=== PATIENT | male | born 1980 | race Caucasian/White ===

== ENCOUNTER 2019-06-04 20:42 | Observation (INO) ==
[2019-06-04] MEDS ORDERED: 0.9 % Sodium Chloride 1,000 ML IVC ONE ×2 (21:00→22:47)
[2019-06-04] MEDS ORDERED: Pantoprazole 40 MG VIAL IVP ONE (21:00)
[2019-06-04] MEDS ORDERED: Morphine Sulfate 2 MG/ML SYRINGE IVP ONE (21:00)
[2019-06-04] MEDS ORDERED: diazePAM 10 MG/2 ML SYRINGE IVP STA (21:30)
[2019-06-04 21:34] LABS: Basophils # 0.1 K/mcL (0.0-0.2); Basophils % 0.8 %; Eosinophils % 0.1 %; Hemoglobin 14.9 g/dL (12.9-16.9); Immature Granulocytes % 0.1 % (0-4); Lymphocytes # 1.6 K/mcL (0.6-4.6); Lymphocytes % 20.2 %; Mean Corpuscular HGB Conc 35.5 g/dL (31.6-35.5); Mean Corpuscular Hemoglobin 32.3 pg (28.0-33.3); Mean Corpuscular Volume 91.1 fL (83.0-100.0); Mean Platelet Volume 10.8 fL (9.4-12.4); Monocytes # 0.6 K/mcL (0.0-1.3); Monocytes % 7.3 %; Neutrophils # 5.5 K/mcL (1.6-8.9); Platelet Count 131 K/mcL (140-400); Red Blood Count 4.61 M/mcL (4.19-5.50); Red Cell Distribution Width 12.1 % (11.5-14.5); Segmented Neutrophils % 71.5 %; White Blood Count 7.7 K/mcL (4.3-11.1)
[2019-06-04 21:45] LABS: INR 0.8; Prothrombin Time 9.4 Seconds (9.4-12.1)
[2019-06-04 21:47] LABS: Activated Partial Thrombo Time 30.1 Seconds (26.0-36.0)
[2019-06-04 21:50] LABS: Alanine Aminotransferase 28 Units/L (7-52); Albumin 4.4 g/dL (3.5-5.7); Albumin/Globulin Ratio 1.5 (1.1-2.2); Alkaline Phosphatase 97 Units/L (34-104); Aspartate Amino Transferase 50 Units/L (13-39); BUN/Creatinine Ratio 22 (6-26); Bilirubin,Direct 0.4 mg/dL (0.0-0.2); Bilirubin,Indirect 0.7 mg/dL (0.0-1.2); Bilirubin,Total 1.1 mg/dL (0.3-1.0); Blood Urea Nitrogen 11 mg/dL (6-20); Calcium 9.8 mg/dL (8.6-10.3); Carbon Dioxide 29 mEq/L (23-29); Chloride 87 mEq/L (98-107); Globulin 2.9 g/dL (2.4-3.5); Glucose 77 mg/dL (70-105); Lipase 62 Units/L (11-82); Osmolality,Calculated 270 (280-300); Potassium 3.9 mEq/L (3.5-5.1); Sodium 131 mEq/L (136-145); Total Protein 7.3 g/dL (6.4-8.9); eGFR For African Americans > 60 (> 60); eGFR For Non-African Americans > 60 (> 60)
[2019-06-04] MEDS ORDERED: Isovue-370 500 ML BOTTLE IVP ONE (22:04)
[2019-06-04] MEDS ORDERED: Ondansetron 4 MG/2 ML VIAL IVP ONE (22:47)
[2019-06-04] MEDS ORDERED: Nicotine 21 MG PATCH.TD24 TD STA (22:47)
[2019-06-04] MEDS ORDERED: Lidocaine Viscous Oral Soln 15 ML SOLUTION MM STA (22:47)
[2019-06-04 23:01] LABS: Bilirubin,Urine Negative (Negative); Blood,Urine Negative (Negative); Clarity,Urine Clear (Clear); Color,Urine Yellow (Yellow); Glucose,Urine (UA) Normal (Normal); Ketones,Urine 40 mg/dL (Negative); Leukocyte Esterase,Urine Negative (Negative); Nitrite,Urine Negative (Negative); PH,Urine 6.5 pH Units (5.0-8.0); Protein,Urine 30 mg/dL (Neg-Trace); Urobilinogen,Urine Normal (Normal)
[2019-06-04 23:19] LABS: Amphetamine Screen,Urine Negative ng/mL (Cutoff=1000); Barbiturate Screen,Urine Negative ng/mL (Cutoff=200); Benzodiazepines Screen,Urine Negative ng/mL (Cutoff=200); Cannabinoid Screen,Urine Negative ng/mL (Cutoff = 50); Cocaine Screen,Urine Negative ng/mL (Cutoff= 300); Opiate Screen,Urine Negative ng/mL (Cutoff=300); Phencyclidine Screen,Urine Negative ng/mL (Cutoff=25)
[2019-06-05] MEDS ORDERED: Naloxone 0.4 MG/ML INJ IVP PRN (05:49)
[2019-06-05] MEDS ORDERED: Ketorolac 30 MG/ML VIAL IVP PRN (05:56)
[2019-06-05] MEDS ORDERED: *HR* LORazepam 2 MG/ML VIAL IVP PRN ×3 (05:57)
[2019-06-05] MEDS ORDERED: Ondansetron 4 MG/2 ML VIAL IVP PRN (05:58)
[2019-06-05] MEDS ORDERED: 0.9 % Sodium Chloride 1,000 ML IVC SCH (06:00)
[2019-06-05 06:17] LABS: Hematocrit 39.9 % (37.5-50.1); Hemoglobin 13.6 g/dL (12.9-16.9); Mean Corpuscular HGB Conc 34.1 g/dL (31.6-35.5); Mean Corpuscular Hemoglobin 32.2 pg (28.0-33.3); Mean Corpuscular Volume 94.3 fL (83.0-100.0); Mean Platelet Volume 11.9 fL (9.4-12.4); Platelet Count 121 K/mcL (140-400); Red Blood Count 4.23 M/mcL (4.19-5.50); Red Cell Distribution Width 12.3 % (11.5-14.5); White Blood Count 6.7 K/mcL (4.3-11.1)
[2019-06-05] MEDS ORDERED: Pantoprazole 40 MG VIAL IVP SCH ×2 (06:30→21:00)
[2019-06-05 06:36] LABS: Alanine Aminotransferase 24 Units/L (7-52); Albumin 3.7 g/dL (3.5-5.7); Albumin/Globulin Ratio 1.5 (1.1-2.2); Alkaline Phosphatase 82 Units/L (34-104); Aspartate Amino Transferase 50 Units/L (13-39); BUN/Creatinine Ratio 18 (6-26); Bilirubin,Total 1.1 mg/dL (0.3-1.0); Blood Urea Nitrogen 10 mg/dL (6-20); Calcium 8.7 mg/dL (8.6-10.3); Carbon Dioxide 27 mEq/L (23-29); Chloride 96 mEq/L (98-107); Globulin 2.4 g/dL (2.4-3.5); Glucose 70 mg/dL (70-105); Magnesium 1.5 mg/dL (1.6-2.6); Osmolality,Calculated 279 (280-300); Phosphorous 3.5 mg/dL (2.7-4.5); Potassium 4.1 mEq/L (3.5-5.1); Sodium 136 mEq/L (136-145); Total Protein 6.1 g/dL (6.4-8.9); eGFR For African Americans > 60 (> 60); eGFR For Non-African Americans > 60 (> 60)
[2019-06-05] MEDS ORDERED: Dextrose Gel 15 GM/37.5 ML TUBE PO PRN ×2 (07:50)
[2019-06-05] MEDS ORDERED: D5% in Water 1,000 ML IVC PRN (07:50)
[2019-06-05] MEDS ORDERED: *HR* Dextrose 50 % in Water (Syg) 50 ML SYRINGE IVP PRN (07:50)
[2019-06-05] MEDS ORDERED: D5% in Lactated Ringers 1,000 ML IVC SCH (08:00)
[2019-06-05] MEDS ORDERED: *HR* Propofol 200 MG/20 ML VIAL IVP ONE (08:25)
[2019-06-05] MEDS ORDERED: Propofol 500 MG/50 ML INFUS..BTL ONE (08:38)
[2019-06-05] MEDS ORDERED: 0.9 % Sodium Chloride 500 ML IVC SCH (09:00)
[2019-06-05] MEDS ORDERED: Insulin LISPRO 300 UNITS/3 ML VIAL SQ SCH (12:00)
[2019-06-05 13:57] VITALS: BP 165/92
[2019-06-05] MEDS ORDERED: Thiamine (B-1) 100 MG, Folic Acid 1 MG, MVI, adult with vitamin K 10 ML in 0.9 % Sodi... IVPB SCH (18:00)
== END 2019-06-05 14:47 | disposition left against medical advice (07) ==
LOC: 3ANU 20:42 → EMEROOARM 20:42 → SUATTDRO 23:33 → 3ANU 06-05 00:03
PROVIDERS: ADMIT Family Medicine; ATTEND Internal Medicine
PROC: ENDOEBX (2019-06-05 09:00)

== ENCOUNTER 2019-06-09 19:03 | Observation (INO) ==
--- NOTE | 2019-06-09 21:19 | Emergency Department Note ---
Disposition Clinical Impression: Alcoholism Pancreatitis Qualifiers: Chronicity: acute Pancreatitis type: alcohol induced Acute pancreatitis complication: unspecified Qualified Code(s): K85.20 - Alcohol induced acute p ancreatitis without necrosis or infection Disposition: Admitted As Inpatient Condition: Good Referrals: NONE,PCP [Primary Care Provider] - Forms: ED Satisfaction Letter, Work/School Release Time of Disposition: 00:20 General Adult HPI - General Chief complaint: ED General Medical Stated complaint: General Time Seen by Provider: 06/09/19 21:18 Source: patient Limitations: no limitations Nursing Notes Reviewed: Yes Vital Signs Reviewed: Yes - History of Present Illness HPI Narrative: 39-year-old male presents to the emergency department with concern that he is not eating. Patient has chronic history of alcoholism where he states that he drinks approximately 2 pints of liquor per day as well as 6 pack of 12 ounce beers. Patient reports that he recently left the hospital AGAINST MEDICAL ADVICE as he was admitted for bleeding ulcers. Patient states that he has not been vomiting up blood or last few days, but his been eating anything and states that he feels dehydrated. Patient denying any chest pain, abdominal pain, nausea, vomiting. Pain Scale: 7 - Related Data Home Medications Medication Instructions Recorded Confirmed Buprenorphine HCl/Naloxone HCl 1 each SL BID 06/04/19 06/04/19 [Suboxone 8 mg-2 mg Sl Film] Previous Rx's Medication Instructions Recorded Lisinopril [Zestril] 20 mg PO DAILY #5 tablet 05/06/19 Omeprazole [PriLOSEC] 20 mg PO BID 30 Days #60 capsule. 06/05/19 Sucralfate [Carafate] 1 gm PO QIDAC 30 Days #120 tablet 06/05/19 Allergies Allergy/AdvReac Type Severity Reaction Status Date / Time No Known Allergies Allergy Verified 01/01/18 06:52 All systems ED: reviewed and negative except as stated. Review of Systems: As Per HPI Constitutional: Denies: fever Cardiovascular: Denies: chest pain Gastrointestinal: Denies: abdominal pain, nausea, vomiting, melena, hematochezia Genitourinary: Denies: dysuria Musculoskeletal: Denies: back pain Past Medical History - Past Medical History Attestation: Yes The following information was validated with the patient. Medical history: Reports: hypertension, other Psychiatric history: Reports: anxiety - Social History Smoking Status: Current every day smoker Smokeless Tobacco Status: No Alcohol use: Reports: heavy, recent Drug use: Reports: none Physical Exam - General Limitations: no limitations General appearance: appears intoxicated - Head Head exam: normocephalic - Eye Eye exam: Present: EOMI. Absent: scleral icterus - ENT ENT exam: mucous membranes dry - Neck Neck exam: Present: full ROM - Chest Chest inspection: Present: symmetric chest wall rise - Respiratory Respiratory exam: Present: normal lung sounds bilaterally. Absent: respiratory distress, accessory muscle use - Cardiovascular Cardiovascular exam: Present: regular rate, normal rhythm, normal heart sounds - Abdominal Exam Abdominal exam: Present: soft, Non-Tender. Absent: distention, guarding, rebou nd, rigidity - Extremities Exam Extremities exam: Present: normal capillary refill - Back Exam Back exam: Present: full ROM - Neurological Exam Neurological exam: Present: alert, CN II-XII intact - Psychiatric Psychiatric exam: Present: normal affect, normal mood - Skin Skin exam: Present: warm, dry, intact, normal color. Absent: rash Course Vital Signs Temperature 97.7 F 06/09/19 19:42 Pulse Rate 95 06/09/19 19:42 Respiratory Rate 16 06/09/19 19:42 Blood Pressure 152/99 06/09/19 19:42 O2 Sat by Pulse Oximetry 96 06/09/19 19:42 Temperature 97.7 F 06/09/19 19:42 Pulse Rate 90 06/09/19 22:37 Respiratory Rate 16 06/09/19 22:37 Blood Pressure 120/98 06/09/19 22:37 O2 Sat by Pulse Oximetry 96 06/09/19 22:37 Oxygen Delivery Oxygen Delivery Room Air Medical Decision Making - [facility] Narrative Medical decision making narrative: 39-year-old male presents to the emergency department with concern for decreased appetite and dehydration with known alcoholism. We are providing fluids and thiamine. We will also give protonix 80 mg. Patient elevated lipase. Ethanol was also elevated. I spoke with the hospitalist, Dr. Alarcon who requested a CT scan of the abdomen and pelvis with IV contrast and stated that he would follow-up on the radiology report. He also requested that we administer 250 mils per hour of lactated Ringer's and initiate CIWA protocol. Patient received 2 mg of Ativan in the emergency department. Patient hemodynamically stable at time of admission. - Lab Data Result diagrams: 06/09/19 21:30 06/09/19 21:30 Lab Results 06/09/19 06/09/19 06/09/19 Range/Units 21:30 21:30 21:30 WBC 6.3 (4.3-11.1) K/mcL RBC 4.74 (4.19-5.50) M/mcL Hgb 15.4 D (12.9-16.9) g/dL Hct 44.2 (37.5-50.1) % MCV 93.2 (83.0-100.0) fL MCH 32.5 (28.0-33.3) pg MCHC 34.8 (31.6-35.5) g/dL RDW 12.1 (11.5-14.5) % Plt Count 144 (140-400) K/mcL MPV 10.7 (9.4-12.4) fL Immature Gran % 0.2 (0-4) % Seg Neutrophils % 50.8 % Lymphocytes % 39.7 % Monocytes % 7.5 % Eosinophils % 0.8 % Basophils % 1.0 % Neutrophils # 3.2 (1.6-8.9) K/mcL Lymphocytes # 2.5 (0.6-4.6) K/mcL Monocytes # 0.5 (0.0-1.3) K/mcL Eosinophils # 0.1 (0.0-0.6) K/mcL Basophils # 0.1 (0.0-0.2) K/mcL Sodium 143 (136-145) mEq/L Potassium 3.2 L (3.5-5.1) mEq/L Chloride 105 (98-107) mEq/L Carbon Dioxide 29 (23-29) mEq/L BUN 4 L (6-20) mg/dL Creatinine 0.64 L (0.70-1.30) mg/dL Est GFR ( Amer) > 60 (> 60) Est GFR (Non-Af Amer) > 60 (> 60) BUN/Creatinine Ratio 6 (6-26) Glucose 84 (70-105) mg/dL Calculated Osmolality 292 (280-300) Calcium 9.2 (8.6-10.3) mg/dL Magnesium 2.0 (1.6-2.6) mg/dL Total Bilirubin 0.4 (0.3-1.0) mg/dL AST 35 (13-39) Units/L ALT 24 (7-52) Units/L Alkaline Phosphatase 95 (34-104) Units/L Serum Total Protein 7.5 (6.4-8.9) g/dL Albumin 4.3 (3.5-5.7) g/dL Globulin 3.2 (2.4-3.5) g/dL Albumin/Globulin Ratio 1.3 (1.1-2.2) Lipase 921 H (11-82) Units/L Urine Color (Yellow) Urine Clarity (Clear) Urine pH (5.0-8.0) pH Units Ur Specific [place] (1.010-1.025) Urine Protein (Neg-Trace) mg/dL Urine Glucose (UA) (Normal) mg/dL Urine Ketones (Negative) mg/dL Urine Blood (Negative) Urine Nitrite (Negative) Urine Bilirubin (Negative) Urine Urobilinogen (Normal) mg/dL Ur Leukocyte Esterase (Negative) Urine Microscopic RBC (0-3) per hpf Urine Microscopic WBC (0-3) per hpf Ur Squamous Epith Cells (None-Few) per lpf Urine Bacteria (None-Few) per hpf Hyaline Casts (None-Few) per lpf Ur Culture Indicated? (NO) Salicylates < 2.5 L (15.0-30.0) mg/dL Urine Opiates Screen Negative (Qxuwbl=047) ng/mL Ur Buprenorphine Scrn Positive H (Cutoff=5) ng/mL Acetaminophen < 10 L (10-20) mcg/mL Ur Barbiturates Screen Negative (Jpdblu=357) ng/mL Ur Phencyclidine Scrn Negative (Cutoff=25) ng/mL Ur Amphetamines Screen Negative (Uxcboq=2998) ng/mL U Benzodiazepines Scrn Negative (Cbzzoh=766) ng/mL Urine Cocaine Screen Negative (Cutoff= 300) ng/mL U Marijuana (THC) Screen Negative (Cutoff = 50) ng/mL Ur Drug Screen Interp See Below Ethyl Alcohol 372 H (Less than 10) mg/dL 06/09/19 Range/Units 22:00 WBC (4.3-11.1) K/mcL RBC (4.19-5.50) M/mcL Hgb (12.9-16.9) g/dL Hct (37.5-50.1) % MCV (83.0-100.0) fL MCH (28.0-33.3) pg MCHC (31.6-35.5) g/dL RDW (11.5-14.5) % Plt Count (140-400) K/mcL MPV (9.4-12.4) fL Immature Gran % (0-4) % Seg Neutrophils % % Lymphocytes % % Monocytes % % Eosinophils % % Basophils % % Neutrophils # (1.6-8.9) K/mcL Lymphocytes # (0.6-4.6) K/mcL Monocytes # (0.0-1.3) K/mcL Eosinophils # (0.0-0.6) K/mcL Basophils # (0.0-0.2) K/mcL Sodium (136-145) mEq/L Potassium (3.5-5.1) mEq/L Chloride (98-107) mEq/L Carbon Dioxide (23-29) mEq/L BUN (6-20) mg/dL Creatinine (0.70-1.30) mg/dL Est GFR ( Amer) (> 60) Est GFR (Non-Af Amer) (> 60) BUN/Creatinine Ratio (6-26) Glucose (70-105) mg/dL Calculated Osmolality (280-300) Calcium (8.6-10.3) mg/dL Magnesium (1.6-2.6) mg/dL Total Bilirubin (0.3-1.0) mg/dL AST (13-39) Units/L ALT (7-52) Units/L Alkaline Phosphatase (34-104) Units/L Serum Total Protein (6.4-8.9) g/dL Albumin (3.5-5.7) g/dL Globulin (2.4-3.5) g/dL Albumin/Globulin Ratio (1.1-2.2) Lipase (11-82) Units/L Urine Color Yellow (Yellow) Urine Clarity Clear (Clear) Urine pH 7.0 (5.0-8.0) pH Units Ur Specific [place] 1.007 L (1.010-1.025) Urine Protein 30 H (Neg-Trace) mg/dL Urine Glucose (UA) Normal (Normal) mg/dL Urine Ketones Negative (Negative) mg/dL Urine Blood Negative (Negative) Urine Nitrite Negative (Negative) Urine Bilirubin Negative (Negative) Urine Urobilinogen Normal (Normal) mg/dL Ur Leukocyte Esterase Negative (Negative) Urine Microscopic RBC 0-3 (0-3) per hpf Urine Microscopic WBC 0-3 (0-3) per hpf Ur Squamous Epith Cells Few (None-Few) per lpf Urine Bacteria None Seen (None-Few) per hpf Hyaline Casts None Seen (None-Few) per lpf Ur Culture Indicated? NO (NO) Salicylates (15.0-30.0) mg/dL Urine Opiates Screen (Xxnier=573) ng/mL Ur Buprenorphine Scrn (Cutoff=5) ng/mL Acetaminophen (10-20) mcg/mL Ur Barbiturates Screen (Kvcarq=333) ng/mL Ur Phencyclidine Scrn (Cutoff=25) ng/mL Ur Amphetamines Screen (Ydprsa=0753) ng/mL U Benzodiazepines Scrn (Xopynw=639) ng/mL Urine Cocaine Screen (Cutoff= 300) ng/mL U Marijuana (THC) Screen (Cutoff = 50) ng/mL Ur Drug Screen Interp Ethyl Alcohol (Less than 10) mg/dL
[2019-06-09] MEDS ORDERED: 0.9 % Sodium Chloride 1,000 ML IVC ONE ×2 (21:34→23:23)
[2019-06-09] MEDS ORDERED: Thiamine (B-1) 100 MG in D5% in Water 50 ML IVPB ONE (21:34)
[2019-06-09] MEDS ORDERED: Pantoprazole 40 MG VIAL IVP ONE (21:34)
--- NOTE | 2019-06-09 21:54 | Emergency Department Note ---
Disposition Clinical Impression: Alcoholism Pancreatitis Qualifiers: Chronicity: acute Pancreatitis type: alcohol induced Acute pancreatitis complication: unspecified Qualified Code(s): K85.20 - Alcohol induced acute p ancreatitis without necrosis or infection Disposition: Admitted As Inpatient Condition: Good Time of Disposition: 00:20 General Adult HPI - General Chief complaint: ED General Medical Stated complaint: General Time Seen by Provider: 06/09/19 21:18 Source: patient Limitations: no limitations Nursing Notes Reviewed: Yes Vital Signs Reviewed: Yes - History of Present Illness Pain Scale: 7 - Related Data Home Medications Medication Instructions Recorded Confirmed Buprenorphine HCl/Naloxone HCl 1 each SL BID 06/04/19 06/10/19 [Suboxone 8 mg-2 mg Sl Film] Previous Rx's Medication Instructions Recorded Lisinopril [Zestril] 20 mg PO DAILY #5 tablet 05/06/19 Omeprazole [PriLOSEC] 20 mg PO BID 30 Days #60 capsule. 06/05/19 Sucralfate [Carafate] 1 gm PO QIDAC 30 Days #120 tablet 06/05/19 Allergies Allergy/AdvReac Type Severity Reaction Status Date / Time No Known Allergies Allergy Verified 01/01/18 06:52 Past Medical History - Past Medical History Medical history: Reports: hypertension, other Psychiatric history: Reports: anxiety - Social History Smoking Status: Current every day smoker Smokeless Tobacco Status: No Alcohol use: Reports: heavy, recent Drug use: Reports: none Physical Exam - General Limitations: no limitations General appearance: appears intoxicated Course Vital Signs Temperature 97.7 F 06/09/19 19:42 Pulse Rate 95 06/09/19 19:42 Respiratory Rate 16 06/09/19 19:42 Blood Pressure 152/99 06/09/19 19:42 O2 Sat by Pulse Oximetry 96 06/09/19 19:42 Temperature 97.7 F 06/09/19 19:42 Pulse Rate 90 06/09/19 22:37 Respiratory Rate 16 06/09/19 22:37 Blood Pressure 120/98 06/09/19 22:37 O2 Sat by Pulse Oximetry 96 06/09/19 22:37 Oxygen Delivery Oxygen Delivery Room Air Medical Decision Making - Medical Records Medical records reviewed: Yes I reviewed the patient's medical records. - Lab Data Lab results reviewed: Yes I reviewed the patient's lab results. Result diagrams: 06/09/19 21:30 06/09/19 21:30 Lab Results 06/09/19 06/09/19 06/09/19 Range/Units 21:30 21:30 21:30 WBC 6.3 (4.3-11.1) K/mcL RBC 4.74 (4.19-5.50) M/mcL Hgb 15.4 D (12.9-16.9) g/dL Hct 44.2 (37.5-50.1) % MCV 93.2 (83.0-100.0) fL MCH 32.5 (28.0-33.3) pg MCHC 34.8 (31.6-35.5) g/dL RDW 12.1 (11.5-14.5) % Plt Count 144 (140-400) K/mcL MPV 10.7 (9.4-12.4) fL Immature Gran % 0.2 (0-4) % Seg Neutrophils % 50.8 % Lymphocytes % 39.7 % Monocytes % 7.5 % Eosinophils % 0.8 % Basophils % 1.0 % Neutrophils # 3.2 (1.6-8.9) K/mcL Lymphocytes # 2.5 (0.6-4.6) K/mcL Monocytes # 0.5 (0.0-1.3) K/mcL Eosinophils # 0.1 (0.0-0.6) K/mcL Basophils # 0.1 (0.0-0.2) K/mcL Sodium 143 (136-145) mEq/L Potassium 3.2 L (3.5-5.1) mEq/L Chloride 105 (98-107) mEq/L Carbon Dioxide 29 (23-29) mEq/L BUN 4 L (6-20) mg/dL Creatinine 0.64 L (0.70-1.30) mg/dL Est GFR ( Amer) > 60 (> 60) Est GFR (Non-Af Amer) > 60 (> 60) BUN/Creatinine Ratio 6 (6-26) Glucose 84 (70-105) mg/dL Calculated Osmolality 292 (280-300) Calcium 9.2 (8.6-10.3) mg/dL Magnesium 2.0 (1.6-2.6) mg/dL Total Bilirubin 0.4 (0.3-1.0) mg/dL AST 35 (13-39) Units/L ALT 24 (7-52) Units/L Alkaline Phosphatase 95 (34-104) Units/L Serum Total Protein 7.5 (6.4-8.9) g/dL Albumin 4.3 (3.5-5.7) g/dL Globulin 3.2 (2.4-3.5) g/dL Albumin/Globulin Ratio 1.3 (1.1-2.2) Lipase 921 H (11-82) Units/L Urine Color (Yellow) Urine Clarity (Clear) Urine pH (5.0-8.0) pH Units Ur Specific [place] (1.010-1.025) Urine Protein (Neg-Trace) mg/dL Urine Glucose (UA) (Normal) mg/dL Urine Ketones (Negative) mg/dL Urine Blood (Negative) Urine Nitrite (Negative) Urine Bilirubin (Negative) Urine Urobilinogen (Normal) mg/dL Ur Leukocyte Esterase (Negative) Urine Microscopic RBC (0-3) per hpf Urine Microscopic WBC (0-3) per hpf Ur Squamous Epith Cells (None-Few) per lpf Urine Bacteria (None-Few) per hpf Hyaline Casts (None-Few) per lpf Ur Culture Indicated? (NO) Salicylates < 2.5 L (15.0-30.0) mg/dL Urine Opiates Screen Negative (Zqyafp=362) ng/mL Ur Buprenorphine Scrn Positive H (Cutoff=5) ng/mL Acetaminophen < 10 L (10-20) mcg/mL Ur Barbiturates Screen Negative (Kswyig=919) ng/mL Ur Phencyclidine Scrn Negative (Cutoff=25) ng/mL Ur Amphetamines Screen Negative (Akjaml=2964) ng/mL U Benzodiazepines Scrn Negative (Yhoolu=915) ng/mL Urine Cocaine Screen Negative (Cutoff= 300) ng/mL U Marijuana (THC) Screen Negative (Cutoff = 50) ng/mL Ur Drug Screen Interp See Below Ethyl Alcohol 372 H (Less than 10) mg/dL 06/09/19 Range/Units 22:00 WBC (4.3-11.1) K/mcL RBC (4.19-5.50) M/mcL Hgb (12.9-16.9) g/dL Hct (37.5-50.1) % MCV (83.0-100.0) fL MCH (28.0-33.3) pg MCHC (31.6-35.5) g/dL RDW (11.5-14.5) % Plt Count (140-400) K/mcL MPV (9.4-12.4) fL Immature Gran % (0-4) % Seg Neutrophils % % Lymphocytes % % Monocytes % % Eosinophils % % Basophils % % Neutrophils # (1.6-8.9) K/mcL Lymphocytes # (0.6-4.6) K/mcL Monocytes # (0.0-1.3) K/mcL Eosinophils # (0.0-0.6) K/mcL Basophils # (0.0-0.2) K/mcL Sodium (136-145) mEq/L Potassium (3.5-5.1) mEq/L Chloride (98-107) mEq/L Carbon Dioxide (23-29) mEq/L BUN (6-20) mg/dL Creatinine (0.70-1.30) mg/dL Est GFR ( Amer) (> 60) Est GFR (Non-Af Amer) (> 60) BUN/Creatinine Ratio (6-26) Glucose (70-105) mg/dL Calculated Osmolality (280-300) Calcium (8.6-10.3) mg/dL Magnesium (1.6-2.6) mg/dL Total Bilirubin (0.3-1.0) mg/dL AST (13-39) Units/L ALT (7-52) Units/L Alkaline Phosphatase (34-104) Units/L Serum Total Protein (6.4-8.9) g/dL Albumin (3.5-5.7) g/dL Globulin (2.4-3.5) g/dL Albumin/Globulin Ratio (1.1-2.2) Lipase (11-82) Units/L Urine Color Yellow (Yellow) Urine Clarity Clear (Clear) Urine pH 7.0 (5.0-8.0) pH Units Ur Specific [place] 1.007 L (1.010-1.025) Urine Protein 30 H (Neg-Trace) mg/dL Urine Glucose (UA) Normal (Normal) mg/dL Urine Ketones Negative (Negative) mg/dL Urine Blood Negative (Negative) Urine Nitrite Negative (Negative) Urine Bilirubin Negative (Negative) Urine Urobilinogen Normal (Normal) mg/dL Ur Leukocyte Esterase Negative (Negative) Urine Microscopic RBC 0-3 (0-3) per hpf Urine Microscopic WBC 0-3 (0-3) per hpf Ur Squamous Epith Cells Few (None-Few) per lpf Urine Bacteria None Seen (None-Few) per hpf Hyaline Casts None Seen (None-Few) per lpf Ur Culture Indicated? NO (NO) Salicylates (15.0-30.0) mg/dL Urine Opiates Screen (Kvcvfp=110) ng/mL Ur Buprenorphine Scrn (Cutoff=5) ng/mL Acetaminophen (10-20) mcg/mL Ur Barbiturates Screen (Goeusj=941) ng/mL Ur Phencyclidine Scrn (Cutoff=25) ng/mL Ur Amphetamines Screen (Wjvhmy=0793) ng/mL U Benzodiazepines Scrn (Wkdbub=649) ng/mL Urine Cocaine Screen (Cutoff= 300) ng/mL U Marijuana (THC) Screen (Cutoff = 50) ng/mL Ur Drug Screen Interp Ethyl Alcohol (Less than 10) mg/dL Attestation Statement - Attestation Attestation: I, Gigi Giraldo MD, personally evaluated this patient and discussed their management with the resident physician. I reviewed the resident's note and agree with the documented findings, medical decision making, and plan of care. 39-year-old male with history of alcoholism who admits to drinking one to 2 pints of whiskey daily and also about a sixpack of beer daily. He states he has had a sixpack of beer and a pint of whiskey today. He presents complaining of nausea and anorexia for the past several days. He has not been eating. No actual vomiting. Patient was just admitted to the hospital about 5 days ago because of some hematemesis. He was felt to have a bleeding ulcer and was started on some medication for this. He left the hospital AMA at that time. He states he has had no further vomiting or hematemesis since last and has continued to drink his usual amounts of alcohol. He does admit to some epigastric pain. No melena, hematemesis, or hematochezia. No fever. Patient states he is just here because his kids and girlfriend made him come in because they were concerned he is going to from his alcoholism. On examination patient is a well-developed thin male in no acute distress. He is alert and oriented 3. There is no cyanosis or diaphoresis. Breath sounds are clear and equal bilaterally. Heart regular rate and rhythm. Abdomen is so ft with present bowel sounds. There is mild mid epigastric tenderness. No guarding or rebound tenderness. No CVA tenderness. Labs reviewed. Lipase 900. Alcohol 372. The hospitalist, Dr. Alarcon, was consulted and accepted admission of the patient. He did request that we start its and obtain a CT of his abdomen and pelvis.
[2019-06-09 22:00] LABS: Basophils # 0.1 K/mcL (0.0-0.2); Eosinophils # 0.1 K/mcL (0.0-0.6); Eosinophils % 0.8 %; Hematocrit 44.2 % (37.5-50.1); Immature Granulocytes % 0.2 % (0-4); Lymphocytes # 2.5 K/mcL (0.6-4.6); Lymphocytes % 39.7 %; Mean Corpuscular HGB Conc 34.8 g/dL (31.6-35.5); Mean Corpuscular Hemoglobin 32.5 pg (28.0-33.3); Mean Corpuscular Volume 93.2 fL (83.0-100.0); Mean Platelet Volume 10.7 fL (9.4-12.4); Monocytes # 0.5 K/mcL (0.0-1.3); Monocytes % 7.5 %; Neutrophils # 3.2 K/mcL (1.6-8.9); Platelet Count 144 K/mcL (140-400); Red Blood Count 4.74 M/mcL (4.19-5.50); Red Cell Distribution Width 12.1 % (11.5-14.5); Segmented Neutrophils % 50.8 %; White Blood Count 6.3 K/mcL (4.3-11.1)
[2019-06-09 22:01] LABS: Hemoglobin 15.4 g/dL (12.9-16.9)
[2019-06-09] MEDS ORDERED: *HR* LORazepam 2 MG/ML VIAL IVP ONE (22:01)
[2019-06-09 22:26] LABS: Bilirubin,Urine Negative (Negative); Blood,Urine Negative (Negative); Clarity,Urine Clear (Clear); Color,Urine Yellow (Yellow); Glucose,Urine (UA) Normal (Normal); Ketones,Urine Negative (Negative); Leukocyte Esterase,Urine Negative (Negative); Nitrite,Urine Negative (Negative); Protein,Urine 30 mg/dL (Neg-Trace); Specific Gravity,Urine 1.007 (1.010-1.025); Urobilinogen,Urine Normal (Normal)
[2019-06-09 22:27] LABS: Acetaminophen < 10 mcg/mL (10-20); Alanine Aminotransferase 24 Units/L (7-52); Albumin 4.3 g/dL (3.5-5.7); Albumin/Globulin Ratio 1.3 (1.1-2.2); Alkaline Phosphatase 95 Units/L (34-104); Aspartate Amino Transferase 35 Units/L (13-39); BUN/Creatinine Ratio 6 (6-26); Bilirubin,Total 0.4 mg/dL (0.3-1.0); Blood Urea Nitrogen 4 mg/dL (6-20); Calcium 9.2 mg/dL (8.6-10.3); Carbon Dioxide 29 mEq/L (23-29); Chloride 105 mEq/L (98-107); Ethanol 372 mg/dL (Less than 10); Globulin 3.2 g/dL (2.4-3.5); Glucose 84 mg/dL (70-105); Osmolality,Calculated 292 (280-300); Potassium 3.2 mEq/L (3.5-5.1); Salicylate < 2.5 mg/dL (15.0-30.0); Sodium 143 mEq/L (136-145); Total Protein 7.5 g/dL (6.4-8.9); eGFR For African Americans > 60 (> 60); eGFR For Non-African Americans > 60 (> 60)
[2019-06-09 22:28] LABS: Bacteria,Urine None Seen per hpf (None-Few); Hyaline Casts,Urine None Seen per lpf (None-Few); RBC,Urine 0-3 per hpf (0-3); Squamous Epithelial Cell,Urine Few per lpf (None-Few); WBC,Urine 0-3 per hpf (0-3)
[2019-06-09 22:41] LABS: Amphetamine Screen,Urine Negative ng/mL (Cutoff=1000); Barbiturate Screen,Urine Negative ng/mL (Cutoff=200); Benzodiazepines Screen,Urine Negative ng/mL (Cutoff=200); Cannabinoid Screen,Urine Negative ng/mL (Cutoff = 50); Cocaine Screen,Urine Negative ng/mL (Cutoff= 300); Opiate Screen,Urine Negative ng/mL (Cutoff=300); Phencyclidine Screen,Urine Negative ng/mL (Cutoff=25)
[2019-06-09 22:47] LABS: Lipase 921 Units/L (11-82)
[2019-06-10] MEDS ORDERED: Isovue-370 500 ML BOTTLE IVP ONE (00:17)
[2019-06-10] MEDS ORDERED: Ringers Solution, Lactated 1,000 ML IVC ONE (00:18)
[2019-06-10] MEDS ORDERED: *HR* LORazepam 2 MG/ML VIAL IVP PRN ×2 (00:19)
[2019-06-10] MEDS ORDERED: Potassium Chloride 40 MEQ, Lidocaine 1% 2 ML in 0.9 % Sodium Chloride 500 ML IVPB ONE (01:00)
[2019-06-10] MEDS ORDERED: Naloxone 0.4 MG/ML INJ IVP PRN (01:52)
[2019-06-10] MEDS ORDERED: Ondansetron 4 MG/2 ML VIAL IVP PRN (01:52)
[2019-06-10 05:59] LABS: Red Cell Distribution Width 12.4 % (11.5-14.5)
[2019-06-10 06:00] LABS: Hematocrit 36.9 % (37.5-50.1); Hemoglobin 12.3 g/dL (12.9-16.9); Immature Platelets 6.6 % (1.1-6.1); Mean Corpuscular HGB Conc 33.3 g/dL (31.6-35.5); Mean Corpuscular Hemoglobin 31.9 pg (28.0-33.3); Mean Corpuscular Volume 95.8 fL (83.0-100.0); Mean Platelet Volume 10.4 fL (9.4-12.4); Red Blood Count 3.85 M/mcL (4.19-5.50); White Blood Count 4.8 K/mcL (4.3-11.1)
[2019-06-10] MEDS ORDERED: Pantoprazole 40 MG VIAL IVP SCH (06:00)
[2019-06-10 06:11] LABS: Prothrombin Time 10.9 Seconds (9.4-12.1)
[2019-06-10 06:14] LABS: Activated Partial Thrombo Time 30.6 Seconds (26.0-36.0)
[2019-06-10 06:29] LABS: Alanine Aminotransferase 22 Units/L (7-52); Albumin/Globulin Ratio 1.4 (1.1-2.2); Alkaline Phosphatase 78 Units/L (34-104); Aspartate Amino Transferase 45 Units/L (13-39); BUN/Creatinine Ratio 8 (6-26); Bilirubin,Total 0.3 mg/dL (0.3-1.0); Blood Urea Nitrogen 5 mg/dL (6-20); Calcium 7.7 mg/dL (8.6-10.3); Carbon Dioxide 23 mEq/L (23-29); Chloride 112 mEq/L (98-107); Globulin 2.1 g/dL (2.4-3.5); Glucose 90 mg/dL (70-105); Magnesium 1.3 mg/dL (1.6-2.6); Osmolality,Calculated 299 (280-300); Phosphorous 2.7 mg/dL (2.7-4.5); Potassium 4.2 mEq/L (3.5-5.1); Sodium 146 mEq/L (136-145); Total Protein 5.1 g/dL (6.4-8.9); eGFR For African Americans > 60 (> 60); eGFR For Non-African Americans > 60 (> 60)
[2019-06-10] MEDS: *HR* LORazepam 2 MG/ML VIAL IVP PRN ×3 (06:35→19:19)
--- NOTE | 2019-06-10 08:00 | Internal Med History&Physical ---
Date of Encounter: 06/10/19 Time of Encounter: 04:00 Internal Medicine - H&P: HPI Chief complaint: Decreased PO Intake/chronic alcohol use History of present illness: Mr. Cordoba is a 39 year old male with a past medical history of chronic alcohol use, history of opioid abuse currently on Suboxone who presented to the ED due to concern for decreased food intake. Patient states she has not had any significant food intake for the past several days because of his inability to stop drinking. Patient has chronic history of alcoholism where he states that he drinks approximately 2 pints of liquor per day as well as 6 - 12 pack of 12 ounce beers. Patient reports that he recently left the hospital AGAINST MEDICAL ADVICE as he was admitted for bleeding ulcers. Patient underwent endoscopy at the time which showed evidence of esophagitis. Patient states that he has not been vomiting up blood or last few days, but his been eating anything and states that he feels dehydrated. Patient denying any chest pain, abdominal pain, nausea, vomiting. On arrival patient mildly hypertensive. Laboratory workup relatively unremarkable aside from an elevated lipase of 923 and mild hypokalemia of 3.2. Urine toxicology positive for buprenorphine. Serum alcohol level 372. Patient given 2 L of fluid bolus in the ED and banana bag. Past Med Surg Social Fam HX - Past Medical History Medical history: hypertension, other Additional medical history: ulcer, alcoholism Psychiatric history: anxiety - Past Surgical History Additional surgical history: tubes in ears - Social History Smoking Status: Current every day smoker Packs per day: 2 ppd Smokeless Tobacco Status: No Alcohol use: heavy, recent Drug use: none - Family History Mother Living Status: Hx Family Cancer: Yes (Breast) Hx Family Genitourinary Disorders: Yes (kidney failure) Father Living Status: Still Living Internal Medicine - H&P: Meds Lisinopril [Zestril] 20 mg PO DAILY #5 tablet 05/06/19 [Rx] Buprenorphine HCl/Naloxone HCl [Suboxone 8 mg-2 mg Sl Film] 1 each SL BID 06/04/19 [History] Omeprazole [PriLOSEC] 20 mg PO BID 30 Days #60 capsule. 06/05/19 [Rx] Sucralfate [Carafate] 1 gm PO QIDAC 30 Days #120 tablet 06/05/19 [Rx] Allergy/AdvReac Type Severity Reaction Status Date / Time No Known Allergies Allergy Verified 01/01/18 06:52 All Systems PM: A 10-system review of systems was performed and is negative for pertinent findings except as documented above in the HPI. - Constitutional Constitutional: no chills, no fever(s), no night sweats - EENT Eyes: no change in vision, no discharge, no pain, no photophobia Ears: no ear discharge, no ear pain, no tinnitus Nose, mouth and throat: no dysphagia, no nasal discharge, no neck pain, no sore throat - Cardiovascular Cardiovascular ROS IM: no chest pain, no diaphoresis, no dyspnea, no lightheadedness, no palpitations, no syncope - Respiratory Respiratory: no cough, no dyspnea, no wheezing, no excessive phlegm production - Gastrointestinal Gastrointestinal: no abdominal pain, no diarrhea, no hematemesis, no hematochezia, no melena, no nausea, no vomiting - Musculoskeletal Musculoskeletal ROS IM: no numbness, no tingling - Integumentary Integumentary IM: no rash, no unusual bruising - Neurological Neurological ROS: no confusion, no convulsions, no focal weakness, no numbness, no tingling, no tremor(s) - Hematologic/Lymphatic Hematologic/Lymphatic: no easy bruising - Constitutional Vitals: Temp Pulse Resp BP Pulse Ox 98.4 F 61 14 135/83 93 06/10/19 06:39 06/10/19 06:39 06/10/19 06:39 06/10/19 06:39 06/10/19 06:39 Exam: General: Alert and oriented Skin:Normal color, no rash, no lesions. HEENT:EOM, pupils equal, round and reactive. Cardiovascular:Normal S1 & S2, no rubs, murmurs or gallops. No JVD. Pulse regular. Lungs:Normal breath sounds, no wheezes or crackles. Abdomen:Soft, non-tender, no rigidity. Extremities:No deformity, no edema or tenderness, no joint swelling or clubbing. Neurological:Normal cognition and motor skills. Pulses:Carotid and radial pulses normal +2. Rest of the physical exam is non contributory Internal Med - H&P Results - Labs CBC & Chem 7: 06/10/19 05:44 06/10/19 05:44 Labs: Short CBC 06/09/19 06/10/19 Range/Units 21:30 05:44 WBC 6.3 4.8 (4.3-11.1) K/mcL Hgb 15.4 D 12.3 L D (12.9-16.9) g/dL Hct 44.2 36.9 L (37.5-50.1) % Plt Count 144 83 L (140-400) K/mcL Neutrophils # 3.2 (1.6-8.9) K/mcL BMP 06/09/19 06/10/19 21:30 05:44 Sodium 143 146 H Potassium 3.2 L 4.2 D Chloride 105 112 H Carbon Dioxide 29 23 BUN 4 L 5 L Creatinine 0.64 L 0.60 L Glucose 84 90 Calcium 9.2 7.7 L Liver Function 06/09/19 06/10/19 Range/Units 21:30 05:44 Total Bilirubin 0.4 0.3 (0.3-1.0) mg/dL AST 35 45 H (13-39) Units/L ALT 24 22 (7-52) Units/L Alkaline Phosphatase 95 78 (34-104) Units/L Albumin 4.3 3.0 L (3.5-5.7) g/dL Urine 06/09/19 Range/Units 22:00 Urine Color Yellow (Yellow) Urine Clarity Clear (Clear) Urine pH 7.0 (5.0-8.0) pH Units Ur Specific [place] 1.007 L (1.010-1.025) Urine Protein 30 H (Neg-Trace) mg/dL Urine Glucose (UA) Normal (Normal) mg/dL - Impressions ITS Impressions Abdomen/Pelvis CT 06/10/19 00:17 IMPRESSION: 1. No CT evidence of pancreatitis, please note imaging findings may lag behind clinical/laboratory picture in setting of acute pancreatitis. 2. Diffuse gastric wall thickening most pronounced along the fundus suggesting gastritis. 3. Trace periportal edema which is nonspecific, possibly reactive in nature. 4. Few incidental/chronic findings as detailed above. D/ / Jackelin Kelly MD / Jackelin Kelly MD Interpreting Provider: Jackelin Kelly MD - Assessment and Plan (1) Alcoholism Current Visit: Yes Status: Acute Assessment and plan: History of chronic alcohol use. Patient reports he drinks 8-16 beers a day, occasionally mixed with whiskey if he has access to it. Last drink was around 1 PM yesterday afternoon. Patient does report history of tremulousness when he stops drinking. Denies any previous history of seizure. Serum alcohol level 372 on arrival. No symptoms of alcohol withdrawal at this time. Patient wishes to seek treatment for his condition. -Patient received banana bag -We will place on CIWA protocol and monitor closely for signs and symptoms of withdrawal. -Ativan as needed -Consult to healthcare social worker (2) Elevated lipase Current Visit: Yes Status: Acute Assessment and plan: Elevated lipase of 921. Clinically patient does not report classic symptoms of acute pancreatitis. Abdominal examination was benign. CT scan of the abdomen shows no evidence of acute pancreatitis. No reports of abdominal pain at this time. Patient does have a desire to eat. Currently on lactated Ringer's at 2 50 mL an hour. -Continue fluids for now -Pain control as needed -Reassess in the morning and consider resuming diet as tolerated if clinical suspicion remains low for acute pancreatitis. (3) Gastritis Current Visit: No Status: Acute Assessment and plan: Recent upper endoscopy on 06/05 revealed findings concerning for esophagitis. Biopsy results were benign. -We will continue patient on IV Protonix. -Resume PPI medication once patient able to tolerate PO intake Qualifiers: Gastritis type: alcoholic Chronicity: unspecified Gastritis bleeding: presence of bleeding unspecified Qualified Code(s): K29.20 - Alcoholic gastritis without bleeding (4) Polysubstance abuse Current Visit: Yes Status: Acute Assessment and plan: History of opiate abuse currently on Suboxone twice a day. -Verify the pharmacy patient's current regimen. -We will substitute Subutex (5) DVT prophylaxis Current Visit: No Status: Acute Assessment and plan: Subcutaneous heparin - Time Spent With Patient Total time spent is greater than 50% in coordination of care (as documented) at patient's floor/unit and/or counseling patient:
[2019-06-10] MEDS: Ringers Solution, Lactated 1,000 ML IVC SCH ×2 (08:11→17:31)
[2019-06-10] MEDS ORDERED: *HR* Buprenorphine HCl 8 MG TAB.SUBL SL SCH (09:00)
[2019-06-10] MEDS: *HR* Heparin 5,000 UNIT/ML VIAL SQ SCH ×3 (10:25→22:53)
[2019-06-10] MEDS: Sucralfate 1 GM TABLET PO SCH ×3 (10:26→22:52)
--- NOTE | 2019-06-10 12:40 | Event Note ---
Date of Encounter: 06/10/19 Time of Encounter: 09:45 H&P reviewed. 39-year-old male with history of chronic alcoholism was admitted overnight due to pancreatitis and gastritis. Clinically improved with bowel rest and IV fluid. No evidence of end organ dysfunction or locoregional competitions on CT. We will start clears later today and advance diet as tolerated. On [facility] protocol
[2019-06-10] MEDS: (Buprenorphine Hcl/Naloxone Hcl [Suboxone 8 Mg-2 Mg]) SL SCH (20:24)
[2019-06-11] MEDS: Ringers Solution, Lactated 1,000 ML IVC SCH (01:58)
[2019-06-11] MEDS: *HR* Heparin 5,000 UNIT/ML VIAL SQ SCH (05:06)
[2019-06-11 06:46] LABS: Immature Granulocytes % 0.2 % (0-4)
[2019-06-11 06:48] LABS: Basophils % 0.7 %; Eosinophils # 0.1 K/mcL (0.0-0.6); Eosinophils % 1.3 %; Hemoglobin 11.7 g/dL (12.9-16.9); Immature Platelets 10.1 % (1.1-6.1); Lymphocytes # 1.7 K/mcL (0.6-4.6); Lymphocytes % 36.7 %; Mean Corpuscular HGB Conc 34.4 g/dL (31.6-35.5); Mean Corpuscular Hemoglobin 32.8 pg (28.0-33.3); Mean Corpuscular Volume 95.2 fL (83.0-100.0); Mean Platelet Volume 10.4 fL (9.4-12.4); Monocytes # 0.4 K/mcL (0.0-1.3); Monocytes % 8.7 %; Neutrophils # 2.4 K/mcL (1.6-8.9); Red Blood Count 3.57 M/mcL (4.19-5.50); Red Cell Distribution Width 11.9 % (11.5-14.5); Segmented Neutrophils % 52.4 %; White Blood Count 4.6 K/mcL (4.3-11.1)
[2019-06-11 06:53] LABS: Platelet Count 93 K/mcL (140-400)
[2019-06-11 07:07] LABS: BUN/Creatinine Ratio 6 (6-26); Blood Urea Nitrogen 4 mg/dL (6-20); Calcium 8.7 mg/dL (8.6-10.3); Carbon Dioxide 30 mEq/L (23-29); Chloride 105 mEq/L (98-107); Glucose 92 mg/dL (70-105); Magnesium 1.3 mg/dL (1.6-2.6); Osmolality,Calculated 291 (280-300); Potassium 3.6 mEq/L (3.5-5.1); Sodium 142 mEq/L (136-145); eGFR For African Americans > 60 (> 60); eGFR For Non-African Americans > 60 (> 60)
[2019-06-11 07:11] VITALS: BP 175/106
[2019-06-11] MEDS ORDERED: Pantoprazole 40 MG VIAL IVP SCH (09:00)
[2019-06-11] MEDS ORDERED: Lisinopril 20 MG TABLET PO SCH (09:00)
[2019-06-11] MEDS: (Buprenorphine Hcl/Naloxone Hcl [Suboxone 8 Mg-2 Mg]) SL SCH (09:38)
--- NOTE | 2019-06-11 10:10 | Discharge Summary ---
- NOTES TO OUTPATIENT PROVIDER Notes to Outpatient Provider: Follow up in alcohol rehab Date of Encounter: 06/11/19 Time of Encounter: 08:00 - Discharge Diagnosis (1) Pancreatitis Priority: Primary Status: Acute Qualifiers: Chronicity: acute Pancreatitis type: alcohol induced Acute pancreatitis complication: no infection or necrosis Qualified Code(s): K85.20 - Alcohol induced acute pancreatitis without necrosis or infection (2) Alcoholism Priority: Secondary Status: Acute (3) Gastritis Priority: Secondary Status: Acute Qualifiers: Gastritis type: alcoholic Chronicity: unspecified Gastritis bleeding: presence of bleeding unspecified Qualified Code(s): K29.20 - Alcoholic gastritis without bleeding (4) DVT prophylaxis Priority: Secondary Status: Acute (5) Polysubstance abuse Priority: Secondary Status: Acute Hospital course: Mr. Cordoba is a 39 year old male with history of chronic alcoholism was admitted overnight due to pancreatitis and gastritis. Clinically improved with bowel rest and IV fluid. No evidence of end organ dysfunction or locoregional competitions on CT. He was gradually advanced on diet which he tolerated and is discharged on 06/11. He was strongly advised to enroll in alcohol rehab but was resistant to the suggestion. Discharge discussed with: patient, nurse - Time Spent with Patient Total time spent providing and/or coordinating discharge services: 25 mins - Discharge Medications Prescriptions: Continued Lisinopril [Zestril] 20 mg PO DAILY #5 tablet Sucralfate [Carafate] 1 gm PO QIDAC 30 Days #120 tablet Omeprazole [PriLOSEC] 20 mg PO BID 30 Days #60 capsule. Buprenorphine HCl/Naloxone HCl [Buprenorphin-Naloxon 8-2 mg Sl] 1 tab SL BID Home Medications: Lisinopril [Zestril] 20 mg PO DAILY #5 tablet 05/06/19 [Rx] Omeprazole [PriLOSEC] 20 mg PO BID 30 Days #60 capsule. 06/05/19 [Rx] Sucralfate [Carafate] 1 gm PO QIDAC 30 Days #120 tablet 06/05/19 [Rx] Buprenorphine HCl/Naloxone HCl [Buprenorphin-Naloxon 8-2 mg Sl] 1 tab SL BID 06/10/19 [History] Allergies/Adverse Reactions: Allergy/AdvReac Type Severity Reaction Status Date / Time No Known Allergies Allergy Verified 01/01/18 06:52 Date of admission: 06/10/19 00:41 Primary care physician: PCP NONE Consults: 06/10/19 00:19 Consult to Logging Shovel Operator [CONS] Routine Reason for SW Consult: alcoholism - Constitutional Vitals: Temp Pulse Resp BP Pulse Ox 98.2 F 57 12 175/106 98 06/11/19 07:06 06/11/19 07:06 06/11/19 07:06 06/11/19 07:06 06/11/19 07:06 Exam: General: Alert and oriented, not in acute distress. Cardiovascular:Normal S1 & S2, No JVD. Pulse regular. Lungs: clear to auscultation, no wheezes/rales Abdomen:Soft, non-tender, no rigidity. Extremities:No deformity or swelling Neurological:Normal cognition and motor skills. Non-focal - Patient Status Disposition: Home, Self-Care Condition: Good Functional capacity at discharge: independent ambulation Overall status at discharge: patient is progressing back to baseline - Discharge Instructions Instructions: Pancreatitis (DC) Follow Up With: NONE,PCP [Primary Care Provider] - - Diet and Activity Activity: resume usual activities as tolerated Diet: advance to your usual diet
== END 2019-06-11 11:23 | disposition home or self-care (01) ==
LOC: EMEROOARM 19:03 → 2NENU 19:03 → SUATTDRO 06-10 00:41 → 2NENU 06-10 02:05
PROVIDERS: ADMIT Internal Medicine; ATTEND Internal Medicine

== ENCOUNTER 2021-03-30 18:17 | Observation (INO) ==
[2021-03-30] MEDS ORDERED: MVI, adult with vitamin K 10 ML in 0.9 % Sodium Chloride 1,000 ML IVC ONE (19:37)
[2021-03-30] MEDS ORDERED: Folic Acid 1 MG in 0.9 % Sodium Chloride 50 ML IVPB ONE (19:37)
[2021-03-30] MEDS ORDERED: Thiamine (B-1) 200 MG in 0.9 % Sodium Chloride 50 ML IVPB ONE (19:37)
[2021-03-30] MEDS ORDERED: 0.9 % Sodium Chloride 1,000 ML IVC ONE (19:37)
[2021-03-30] MEDS ORDERED: Ondansetron 4 MG/2 ML VIAL IVP ONE (19:46)
[2021-03-30] MEDS ORDERED: *HR* LORazepam 2 MG/ML VIAL IVP PRN ×3 (19:46)
[2021-03-30 20:22] LABS: Basophils # 0.1 K/mcL (0.0-0.2); Basophils % 0.6 %; Hematocrit 41.8 % (37.5-50.1); Hemoglobin 14.3 g/dL (12.9-16.9); Immature Granulocytes % 0.8 % (0-4); Lymphocytes # 1.2 K/mcL (0.6-4.6); Lymphocytes % 15.2 %; Mean Corpuscular HGB Conc 34.2 g/dL (31.6-35.5); Mean Corpuscular Hemoglobin 31.7 pg (28.0-33.3); Mean Corpuscular Volume 92.7 fL (83.0-100.0); Mean Platelet Volume 11.1 fL (9.4-12.4); Monocytes # 0.7 K/mcL (0.0-1.3); Monocytes % 8.9 %; Neutrophils # 5.8 K/mcL (1.6-8.9); Platelet Count 206 K/mcL (140-400); Red Blood Count 4.51 M/mcL (4.19-5.50); Segmented Neutrophils % 74.5 %; White Blood Count 7.8 K/mcL (4.3-11.1)
[2021-03-30 20:41] LABS: Alanine Aminotransferase 21 Units/L (7-52); Albumin 4.2 g/dL (3.5-5.7); Albumin/Globulin Ratio 1.3 (1.1-2.2); Alkaline Phosphatase 109 Units/L (34-104); Aspartate Amino Transferase 42 Units/L (13-39); BUN/Creatinine Ratio 15 (6-26); Bilirubin,Direct 0.2 mg/dL (0.0-0.2); Bilirubin,Indirect 0.7 mg/dL (0.0-1.0); Bilirubin,Total 0.9 mg/dL (0.3-1.0); Blood Urea Nitrogen 12 mg/dL (6-20); Calcium 10.1 mg/dL (8.6-10.3); Carbon Dioxide 27 mEq/L (23-29); Chloride 101 mEq/L (98-107); Ethanol < 10 mg/dL (Less than 10); Globulin 3.2 g/dL (2.4-3.5); Glucose 116 mg/dL (70-105); Lipase 48 Units/L (11-82); Magnesium 1.5 mg/dL (1.6-2.6); Osmolality,Calculated 285 (280-300); Potassium 4.1 mEq/L (3.5-5.1); Sodium 137 mEq/L (136-145); Total Protein 7.4 g/dL (6.4-8.9); eGFR For African Americans > 60 (> 60); eGFR For Non-African Americans > 60 (> 60)
[2021-03-30] MEDS ORDERED: Magnesium Oxide 400 MG TABLET PO STA (21:03)
[2021-03-30 21:09] LABS: INR 1.1; Prothrombin Time 12.3 Seconds (9.4-12.1)
[2021-03-30 23:03] LABS: Bacteria,Urine Few per hpf (None-Few); Bilirubin,Urine Negative (Negative); Blood,Urine Negative (Negative); Clarity,Urine Clear (Clear); Color,Urine Yellow (Yellow); Glucose,Urine (UA) Normal (Normal); Hyaline Casts,Urine Few per lpf (None Seen); Ketones,Urine 20 mg/dL (Negative); Leukocyte Esterase,Urine Negative (Negative); Mucus,Urine Few per lpf (None-Few); Nitrite,Urine Negative (Negative); Protein,Urine 50 mg/dL (Neg-Trace); RBC,Urine 0-3 per hpf (0-3); Specific Gravity,Urine 1.024 (1.010-1.025); Squamous Epithelial Cell,Urine Few per hpf (None-Few); WBC,Urine 0-3 per hpf (0-3)
[2021-03-30] MEDS ORDERED: Naloxone 0.4 MG/ML INJ IVP PRN (23:46)
[2021-03-30] MEDS ORDERED: Ondansetron 4 MG/2 ML VIAL IVP PRN (23:46)
[2021-03-30] MEDS ORDERED: Acetaminophen 325 MG TABLET PO PRN (23:46)
[2021-03-31] MEDS: 0.9 % Sodium Chloride 1,000 ML IVC SCH ×2 (02:43→10:45)
[2021-03-31 06:48] LABS: Basophils # 0.1 K/mcL (0.0-0.2); Basophils % 0.9 %; Eosinophils # 0.1 K/mcL (0.0-0.6); Eosinophils % 1.1 %; Hematocrit 37.2 % (37.5-50.1); Hemoglobin 12.9 g/dL (12.9-16.9); Immature Granulocytes % 0.3 % (0-4); Lymphocytes % 31.8 %; Mean Corpuscular HGB Conc 34.7 g/dL (31.6-35.5); Mean Corpuscular Hemoglobin 32.1 pg (28.0-33.3); Mean Corpuscular Volume 92.5 fL (83.0-100.0); Mean Platelet Volume 10.8 fL (9.4-12.4); Monocytes # 0.7 K/mcL (0.0-1.3); Monocytes % 10.9 %; Neutrophils # 3.5 K/mcL (1.6-8.9); Platelet Count 175 K/mcL (140-400); Red Blood Count 4.02 M/mcL (4.19-5.50); Red Cell Distribution Width 11.9 % (11.5-14.5); White Blood Count 6.4 K/mcL (4.3-11.1)
[2021-03-31 07:11] LABS: BUN/Creatinine Ratio 13 (6-26); Blood Urea Nitrogen 9 mg/dL (6-20); Calcium 8.7 mg/dL (8.6-10.3); Carbon Dioxide 25 mEq/L (23-29); Chloride 108 mEq/L (98-107); Glucose 99 mg/dL (70-105); Magnesium 1.5 mg/dL (1.6-2.6); Osmolality,Calculated 287 (280-300); Potassium 3.6 mEq/L (3.5-5.1); Sodium 139 mEq/L (136-145); eGFR For African Americans > 60 (> 60); eGFR For Non-African Americans > 60 (> 60)
[2021-03-31 09:06] LABS: Amphetamine Screen,Urine Negative ng/mL (Cutoff=1000); Barbiturate Screen,Urine Negative ng/mL (Cutoff=200); Benzodiazepines Screen,Urine Negative ng/mL (Cutoff=200); Cannabinoid Screen,Urine Negative ng/mL (Cutoff = 50); Cocaine Screen,Urine Negative ng/mL (Cutoff= 300); Opiate Screen,Urine Negative ng/mL (Cutoff=300); Phencyclidine Screen,Urine Negative ng/mL (Cutoff=25)
[2021-03-31] MEDS ORDERED: *HR* Buprenorphine HCl 8 MG TAB.SUBL SL SCH (09:45)
[2021-03-31] MEDS ORDERED: QUEtiapine Fumarate 25 MG TABLET PO SCH (09:45)
[2021-03-31 15:42] VITALS: BP 128/71
[2021-03-31] MEDS ORDERED: Thiamine (B-1) 100 MG TABLET PO SCH (15:45)
[2021-03-31] MEDS ORDERED: Magnesium Oxide 400 MG TABLET PO SCH (15:45)
[2021-03-31] MEDS: Sucralfate 1 GM TABLET PO SCH (15:56)
[2021-04-01] MEDS ORDERED: Thiamine (B-1) 100 MG TABLET PO SCH (09:00)
[2021-04-01] MEDS ORDERED: Multivit/Ca/Min/Fe/FA 1 TAB TABLET PO SCH (09:00)
[2021-04-01] MEDS ORDERED: lisinopriL 20 MG TABLET PO SCH (09:00)
[2021-04-01] MEDS ORDERED: amLODIPine 5 MG TABLET PO SCH (09:00)
== END 2021-03-31 16:33 | disposition home or self-care (01) ==
LOC: EMEROOARM 18:17 → 2NENU 18:17 → SUATTDRO 22:34 → 2NENU 23:41
PROVIDERS: ADMIT Student in an Organized Health Care Education/Training Program; ATTEND Internal Medicine